=== PATIENT | female | born 1985 | race Caucasian/White ===

== ENCOUNTER 2019-06-21 20:11 | Emergency (ER) | payer OTHER ==
--- NOTE | 2019-06-21 20:55 | PDOC ---
Rapid Medical Evaluation Time Seen by Provider: 06/21/19 20:51 Medical Evaluation: 06/21/19 20:53 This patient had brief evaluation by me cc: vaginal bleeding HPI: Patient is , 5 weeks with vaginal bleeding and pain to right lower abdomen denies dizziness or nausea PE: NAD unlabored breathing mild tenderness in right lower abdomen orders: labs ordered This patient will proceed to the emergency room for further evaluation,. Discharge Disposition - Diagnosis Vaginal bleeding - Referrals - Patient Instructions - Post Discharge Activity
[2019-06-21 21:02] VITALS: TEMP 98.1; BMI 30.4
[2019-06-21 22:11] LABS: BASO % 0.5 % (0-2.0); EOS % 2.8 % (0-4.5); HEMATOCRIT 38.9 % (32.4-45.2); HEMOGLOBIN 13.1 GM/dL (10.7-15.3); LYMPH % 29.7 % (8-40); MCH 29.6 pg (25.7-33.7); MCHC 33.7 g/dl (32.0-36.0); MEAN CELL VOLUME 87.7 fl (80-96); MEAN PLT VOLUME 9.9 fl (7.5-11.1); PLATELET COUNT 206 K/MM3 (134-434); RBC 4.43 M/mm3 (3.60-5.2); RDW 13.9 % (11.6-15.6); WHITE BLOOD COUNT 7.1 K/mm3 (4.0-10.0)
[2019-06-21 22:20] LABS: EPI CELLS 1.5 /HPF (0-5/HPF); HYALINE CASTS 2 /lpf (0-8); PH,URINE 5.5 (5.0-8.0); URINE APPEARANCE CLEAR; URINE BACTERIA 25.6 /hpf (NEGATIVE); URINE BILIRUBIN NEGATIVE (NEGATIVE); URINE COLOR YELLOW; URINE GLUCOSE (UA) NEGATIVE (NEGATIVE); URINE KETONE NEGATIVE (NEGATIVE); URINE LEUK ESTERASE NEGATIVE (NEGATIVE); URINE NITRITE NEGATIVE (NEGATIVE); URINE PROTEIN NEGATIVE (NEGATIVE); URINE RBC 39 /hpf (0-4); URINE WBC 1 /hpf (0-5)
[2019-06-21 22:57] LABS: ALBUMIN 3.4 g/dl (3.4-5.0); BILIRUBIN,TOTAL 0.2 mg/dL (0.2-1); BLOOD UREA NITROGEN 11.9 mg/dL (7-18); CALCIUM 8.2 mg/dL (8.5-10.1); CREATININE 0.5 mg/dL (0.55-1.3); POTASSIUM 3.6 mmol/L (3.5-5.1); TOT PROT 7.5 g/dl (6.4-8.2)
--- NOTE | 2019-06-21 23:22 | PDOC ---
Documentation entered by Petr Ayala SCRIBE, acting as scribe for Florina Martínez MD. Florina Martínez MD: This documentation has been prepared by the Jamie putnam Xhesika, SCRIBE, under my direction and personally reviewed by me in its entirety. I confirm that the documentation accurately reflects all work, treatment, procedures, and medical decision making performed by me. History of Present Illness - General Chief Complaint: Vaginal Bleeding Stated Complaint: FIVE WK PA/VAGINAL BLEEDING Time Seen by Provider: 06/21/19 20:51 History Source: Patient Exam Limitations: No Limitations - History of Present Illness Initial Comments: 06/21/19 22:46 The patient is a 33 year old female, A2, currently 5 weeks with no significant PMH of who presents to the emergency department for vaginal bleeding yesterday. Pt states she was having intercourse with her partner when she noticed blood. Pt denies any active bleeding today. Pt states she was seen at [facility] for an interview and her next appointment is Jul 12. Pt states her LMP was 05/05/2019. The patient denies chest pain, shortness of breath, headache and dizziness. Denies fever, chills, cough, nausea, vomiting, diarrhea and constipation. Denies dysuria, frequency, urgency and hematuria. Allergies: NKDA Past surgical history: 2-s-throkwbs Past History - Past Medical History Allergies/Adverse Reactions: Allergies Allergy/AdvReac Type Severity Reaction Status Date / Time No Known Allergies Allergy Verified 06/21/19 20:59 COPD: No Other medical history: 2 ectopic pregnancies - Psycho Social/Smoking Cessation Hx Smoking History: Never smoked Have you smoked in the past 12 months: No Information on smoking cessation initiated: No Hx Alcohol Use: No Drug/Substance Use Hx: No Review of Systems - Review of Systems Able to Perform ROS?: Yes Comments:: 06/21/19 22:46 GENERAL/CONSTITUTIONAL: No fever or chills. No weakness. HEAD, EYES, EARS, NOSE AND THROAT: No change in vision. No ear pain or discharge. No sore throat. CARDIOVASCULAR: No chest pain or shortness of breath. RESPIRATORY: No cough, wheezing, or hemoptysis. GASTROINTESTINAL: No nausea, vomiting, diarrhea or constipation. +vaginal bleeding. GENITOURINARY: No dysuria, frequency, or change in urination. MUSCULOSKELETAL: No joint or muscle swelling or pain. No neck or back pain. SKIN: No rash NEUROLOGIC: No headache, vertigo, loss of consciousness, or change in strength/ sensation. ENDOCRINE: No increased thirst. No abnormal weight change. HEMATOLOGIC/LYMPHATIC: No anemia, easy bleeding, or history of blood clots. ALLERGIC/IMMUNOLOGIC: No hives or skin allergy. *Physical Exam - Vital Signs Last Vital Signs Temp Pulse Resp BP Pulse Ox 98.1 F 79 20 127/74 100 06/21/19 20:59 06/21/19 20:59 06/21/19 20:59 06/21/19 20:59 06/21/19 20:59 - Physical Exam 06/21/19 22:46 GENERAL: Awake, alert, and fully oriented, in no acute distress HEAD: No signs of trauma EYES: PERRLA, EOMI, sclera anicteric, conjunctiva clear ENT: Auricles normal inspection, hearing grossly normal, nares patent, oropharynx clear without exudates. Moist mucosa NECK: Normal ROM, supple, no lymphadenopathy, JVD, or masses LUNGS: Breath sounds equal, clear to auscultation bilaterally. No wheezes, and no crackles HEART: Regular rate and rhythm, normal S1 and S2, no murmurs, rubs or gallops ABDOMEN: Soft, nontender, normoactive bowel sounds. No guarding, no rebound. No masses : +scant bleeding with intercourse EXTREMITIES: Normal range of motion, no edema. No clubbing or cyanosis. No cords, erythema, or tenderness NEUROLOGICAL: Cranial nerves II through XII grossly intact. Normal speech, normal gait SKIN: Warm, Dry, normal turgor, no rashes or lesions noted. ED Treatment Course - LABORATORY CBC & Chemistry Diagram: 06/21/19 21:40 06/21/19 21:40 - ADDITIONAL ORDERS Additional order review: Laboratory Results 06/21/19 21:40 Urine Color Yellow Urine Appearance Clear Urine pH 5.5 Ur Specific [place] 1.028 Urine Protein Negative Urine Glucose (UA) Negative Urine Ketones Negative Urine Blood 3+ H Urine Nitrite Negative Urine Bilirubin Negative Urine Urobilinogen 1.0 Ur Leukocyte Esterase Negative Urine WBC (Auto) 1 Urine RBC (Auto) 39 Urine Casts (Auto) 2 U Epithel Cells (Auto) 1.5 Urine Bacteria (Auto) 25.6 06/21/19 21:40 RBC 4.43 MCV 87.7 MCHC 33.7 RDW 13.9 MPV 9.9 Neutrophils % 56.0 Lymphocytes % 29.7 Monocytes % 11.0 H Eosinophils % 2.8 Basophils % 0.5 - RADIOLOGY Radiology Studies Ordered: Category Date Time Status TRANSVAGINAL US PREG [US] Stat Ultrasound 06/21/19 22:32 Ordered Medical Decision Making - Medical Decision Making 06/21/19 23:19 33-year-old female who states she is 5 weeks her last LMP was in May Past medical history 6 para 3 a 2 Differential includes early , ectopic , threatened AB Plan type and screen, beta hCG and transvaginal ultrasound 06/22/19 00:35 Vaginal ultrasound shows a single live intrauterine of 7 weeks and 1 day, heart tones are 143 bpm, no right ovarian torsion color flow with appropriate anterior and venous waveforms, left ovary not seen Patient will keep her [facility] appointment on July 12 and return if there are any significant problems such as cramping with passage of large clots Discharge - Discharge Information Problems reviewed: Yes Clinical Impression/Diagnosis: Vaginal bleeding Condition: Stable Disposition: HOME - Admission No - Follow up/Referral Referrals: Char Salazar MD [Primary Care Provider] - - Patient Discharge Instructions Patient Printed Discharge Instructions: DI for -- Discomforts and Remedies Additional Instructions: please keep your appointment with the solutions specialist in July you may take vitamins that you buy in the store - Post Discharge Activity
[2019-06-22 01:08] VITALS: BP 108/78; PULSE 78
== END 2019-06-22 01:06 | disposition home or self-care (01) ==
LOC: JER 20:11
DX: O26.891 Other specified pregnancy related conditions, first trimester (principal); Z3A.01 Less than 8 weeks gestation of pregnancy; N93.9 Abnormal uterine and vaginal bleeding, unspecified
CPT/HCPCS: 36415; 76817-TC; 80053; 81003; 84702; 84703; 85025; 87086; 99283-25

== ENCOUNTER 2019-06-29 03:24 | Emergency (ER) | payer OTHER ==
[2019-06-29 04:14] VITALS: TEMP 97.9; BMI 30.2
--- NOTE | 2019-06-29 04:41 | PDOC ---
Attending Attestation - Resident Resident Name: Darion Patiño - ED Attending Attestation I have performed the following: I have examined & evaluated the patient, The case was reviewed & discussed with the resident, I agree w/resident's findings & plan - HPI HPI: 06/29/19 21:00 see resident hpi - Physicial Exam PE: 06/29/19 21:00 see resident exam - Medical Decision Making 06/29/19 21:00 33-year-old female with vaginal bleeding and cramping status post methotrexate Patient signed out to dayshift pending ultrasound to rule out retained products
[2019-06-29 05:13] LABS: HEMATOCRIT 35.7 % (32.4-45.2); HEMOGLOBIN 12.3 GM/dL (10.7-15.3); MCH 30.1 pg (25.7-33.7); MCHC 34.4 g/dl (32.0-36.0); MEAN CELL VOLUME 87.5 fl (80-96); MEAN PLT VOLUME 9.6 fl (7.5-11.1); PLATELET COUNT 226 K/MM3 (134-434); RBC 4.08 M/mm3 (3.60-5.2); RDW 13.6 % (11.6-15.6); WHITE BLOOD COUNT 10.5 K/mm3 (4.0-10.0)
[2019-06-29 05:20] LABS: EPI CELLS 26.5 /HPF (0-5/HPF); HYALINE CASTS 105 /lpf (0-8); URINE APPEARANCE TURBID; URINE BACTERIA 0.3 /hpf (NEGATIVE); URINE BILIRUBIN 1+ (NEGATIVE); URINE COLOR RED; URINE GLUCOSE (UA) 1+ (NEGATIVE); URINE KETONE TRACE (NEGATIVE); URINE LEUK ESTERASE 1+ (NEGATIVE); URINE NITRITE NEGATIVE (NEGATIVE); URINE PROTEIN 3+ (NEGATIVE); URINE RBC 4247 /hpf (0-4); URINE UROBILINOGEN 0.2 mg/dL (0.2-1.0); URINE WBC 7 /hpf (0-5)
[2019-06-29 05:29] LABS: INR 0.99 (0.83-1.09); PROTHROMBIN TIME (PATIENT) 11.7 SEC (9.7-13.0)
[2019-06-29 05:41] LABS: ALBUMIN 3.2 g/dl (3.4-5.0); BILIRUBIN,TOTAL 0.3 mg/dL (0.2-1); BLOOD UREA NITROGEN 12.3 mg/dL (7-18); CREATININE 0.8 mg/dL (0.55-1.3); POTASSIUM 4.6 mmol/L (3.5-5.1); TOT PROT 6.9 g/dl (6.4-8.2)
--- NOTE | 2019-06-29 06:03 | PDOC ---
History of Present Illness - General Chief Complaint: Vaginal Bleeding Stated Complaint: VOMITING & VAGINAL BLEEDING Time Seen by Provider: 06/29/19 04:40 History Source: Patient Exam Limitations: No Limitations - History of Present Illness Initial Comments: 06/29/19 08:08 33 yo F with no past medical history presents to the emergency department s/p methotrexate administration at [facility] 1 day ago presents to the emergency department with abdominal cramping and bleeding. Per the patient, she was approximately 7 weeks 1 day GA based on US which confirmed that IUP. At approximately 6:30 pm last night, she states she began having abdominal cramping. Throughout the night, she noted blood in the bed and became concerned she was losing too much blood. Endorses abdominal cramping in the suprapubic region. Denies the following: fevers, chills, lightheadedness, chest pain, SOB, nausea, vomiting, dysuria, hematuria, diarrhea, and leg pain/swelling. Allergies: NKDA Past History - Past Medical History Allergies/Adverse Reactions: Allergies Allergy/AdvReac Type Severity Reaction Status Date / Time No Known Allergies Allergy Verified 06/29/19 04:14 Home Medications: Ambulatory Orders Unobtainable 06/29/19 COPD: No - Reproductive History (#): 7 Para: 3 Ectopic : Yes (2) - Psycho Social/Smoking Cessation Hx Smoking History: Never smoked Have you smoked in the past 12 months: No Hx Alcohol Use: No Drug/Substance Use Hx: No Review of Systems - Review of Systems Able to Perform ROS?: Yes Is the patient limited Dutch proficient: No Constitutional: No: Chills, Diaphoresis, Fever, Weakness HEENTM: No: Eye Pain, Ear Pain, Nose Pain, Throat Pain, Mouth Pain Respiratory: No: Cough, Shortness of Breath, Hemoptysis Cardiac (ROS): No: Chest Pain, Lightheadedness, Palpitations, Syncope, Chest Tightness ABD/GI: Yes: Abdominal cramping. No: Constipated, Diarrhea, Nausea, Poor Appetite, Poor Fluid Intake, Rectal Bleeding, Vomiting, Tarry Stools : No: Burning, Dysuria, Hematuria Musculoskeletal: No: Back Pain, Joint Pain, Neck Pain Integumentary: No: Bruising, Erythema, Rash Neurological: No: Headache, Numbness Endocrine: No: Unexplained Weight Loss Hematologic/Lymphatic: No: Anemia *Physical Exam - Vital Signs Last Vital Signs Temp Pulse Resp BP Pulse Ox 97.9 F 82 18 108/66 100 06/29/19 03:30 06/29/19 03:30 06/29/19 03:30 06/29/19 03:30 06/29/19 03:30 - Physical Exam General Appearance: Yes: Nourished, Appropriately Dressed. No: Apparent Distress, Intoxicated HEENT: positive: EOMI, ROBBIE, Normal Voice, Symmetrical, Pharynx Normal, Hearing Grossly Normal. negative: Pale Conjunctivae, Scleral Icterus (R), Scleral Icterus (L), Muffled/Hoarse voice, Pharyngeal Erythema, Tonsillar Exudate, Tonsillar Erythema, Excessive drooling Neck: positive: Trachea midline, Supple. negative: Tender, Lymphadenopathy (R) , Lymphadenopathy (L), Tender lateral, Tender midline Respiratory/Chest: positive: Lungs Clear, Normal Breath Sounds. negative: Chest Tender, Respiratory Distress, Accessory Muscle Use, Crackles, Rales, Rhonchi, Stridor, Wheezing Cardiovascular: positive: Regular Rhythm, Regular Rate, S1, S2. negative: Systolic Murmur Female Pelvic Exam: positive: normal external exam, cervical os closed, normal adnexa, vaginal bleeding, other (blood clots located in the vaginal vault with scant pieces of suspected products of conception at the os. digital pelvic exam reveals closed os. ). negative: CMT, adnexal tenderness Gastrointestinal/Abdominal: positive: Normal Bowel Sounds, Flat, Soft. negative : Tender, Distended, Guarding Lymphatic: negative: Adenopathy Musculoskeletal: positive: Normal Inspection. negative: CVA Tenderness, Vertebral Tenderness Extremity: positive: Normal Capillary Refill, Normal Inspection, Normal Range of Motion. negative: Tender, Swelling, Calf Tenderness, Erythema Integumentary: positive: Normal Color, Dry, Warm Neurologic: positive: Fully Oriented, Alert, Normal Mood/Affect ED Treatment Course - LABORATORY CBC & Chemistry Diagram: 06/29/19 05:00 06/29/19 05:00 - ADDITIONAL ORDERS Additional order review: Laboratory Results 06/29/19 06/29/19 06/29/19 05:05 05:00 05:00 PT with INR 11.70 INR 0.99 Sodium 138 Potassium 4.6 Chloride 107 Carbon Dioxide 25 Anion Gap 6 L BUN 12.3 Creatinine 0.8 Est GFR (CKD-EPI)AfAm 113.06 Est GFR (CKD-EPI)NonAf 97.55 Random Glucose 120 H Calcium 9.0 Total Bilirubin 0.3 AST 16 ALT 27 Alkaline Phosphatase 71 Total Protein 6.9 Albumin 3.2 L Urine Color Red Urine Appearance Turbid Urine pH 6.0 Ur Specific [place] 1.028 Urine Protein 3+ H Urine Glucose (UA) 1+ H Urine Ketones Trace H Urine Blood 3+ H Urine Nitrite Negative Urine Bilirubin 1+ H Urine Urobilinogen 0.2 Ur Leukocyte Esterase 1+ H Urine WBC (Auto) 7 Urine RBC (Auto) 4247 Urine Casts (Auto) 105 U Epithel Cells (Auto) 26.5 Urine Bacteria (Auto) 0.3 06/29/19 05:00 RBC 4.08 MCV 87.5 MCHC 34.4 RDW 13.6 MPV 9.6 Medical Decision Making - Medical Decision Making 33 yo F with no past medical history presents to the emergency department s/p methotrexate administration at [facility] 1 day ago presents to the emergency department with abdominal cramping and bleeding. Initial vitals: Initial Vital Signs Temp Pulse Resp BP Pulse Ox 97.9 F 82 18 108/66 100 06/29/19 03:30 06/29/19 03:30 06/29/19 03:30 06/29/19 03:30 06/29/19 03:30 Work up: suspect patient is in the midst of an considering she took methotrexate within the past 24 hours. will evaluate for anemia and obtain blood type. will order for transvaginal US to ascertain if there are retained products of conception Laboratory Tests 06/29/19 06/29/19 06/29/19 05:00 05:00 05:00 WBC 10.5 H RBC 4.08 Hgb 12.3 Hct 35.7 MCV 87.5 MCH 30.1 MCHC 34.4 RDW 13.6 Plt Count 226 MPV 9.6 PT with INR 11.70 INR 0.99 Sodium 138 Potassium 4.6 Chloride 107 Carbon Dioxide 25 Anion Gap 6 L BUN 12.3 Creatinine 0.8 Est GFR (CKD-EPI)AfAm 113.06 Est GFR (CKD-EPI)NonAf 97.55 Random Glucose 120 H Calcium 9.0 Total Bilirubin 0.3 AST 16 ALT 27 Alkaline Phosphatase 71 Total Protein 6.9 Albumin 3.2 L Urine Color Urine Appearance Urine pH Ur Specific [place] Urine Protein Urine Glucose (UA) Urine Ketones Urine Blood Urine Nitrite Urine Bilirubin Urine Urobilinogen Ur Leukocyte Esterase Urine WBC (Auto) Urine RBC (Auto) Urine Casts (Auto) U Pathogenic Cast Auto U Epithel Cells (Auto) U Sm Round Cell (Auto) Urine Bacteria (Auto) Blood Type Antibody Screen 06/29/19 06/29/19 05:00 05:05 WBC RBC Hgb Hct MCV MCH MCHC RDW Plt Count MPV PT with INR INR Sodium Potassium Chloride Carbon Dioxide Anion Gap BUN Creatinine Est GFR (CKD-EPI)AfAm Est GFR (CKD-EPI)NonAf Random Glucose Calcium Total Bilirubin AST ALT Alkaline Phosphatase Total Protein Albumin Urine Color Red Urine Appearance Turbid Urine pH 6.0 Ur Specific [place] 1.028 Urine Protein 3+ H Urine Glucose (UA) 1+ H Urine Ketones Trace H Urine Blood 3+ H Urine Nitrite Negative Urine Bilirubin 1+ H Urine Urobilinogen 0.2 Ur Leukocyte Esterase 1+ H Urine WBC (Auto) 7 Urine RBC (Auto) 4247 Urine Casts (Auto) 105 U Pathogenic Cast Auto None seen U Epithel Cells (Auto) 26.5 U Sm Round Cell (Auto) None seen Urine Bacteria (Auto) 0.3 Blood Type O POSITIVE Antibody Screen Negative patient is O+ and no UTI noted. patient is awaiting for TVUS. patient to be signed out to day team. Discharge - Discharge Information Problems reviewed: Yes Clinical Impression/Diagnosis: Miscarriage - Follow up/Referral Referrals: Mal Kevin MD [Staff Physician] - - Patient Discharge Instructions Patient Printed Discharge Instructions: DI for Miscarriage Print Language: ICELANDIC - Post Discharge Activity
--- NOTE | 2019-06-29 09:39 | PDOC ---
*Physical Exam - Vital Signs Last Vital Signs Temp Pulse Resp BP Pulse Ox 97.9 F 82 18 108/66 100 06/29/19 03:30 06/29/19 03:30 06/29/19 03:30 06/29/19 03:30 06/29/19 03:30 - Physical Exam 06/29/19 09:[address] alcazar. Patient is a 33-year-old female who received methotrexate at [facility] 24 hours previously for an IUP with FH confirmed by ultrasound dated 06/21/2019. At that time, IUP was noted to be 7 weeks 1 days old. Transvaginal ultrasound during current admission shows no evidence of IUP, retained products are noted. Os is closed. Patient reports minimal bleeding at this moment. There is no indication for endometritis at this time. Patient has scheduled follow[facility]up at [facility]. Patient is hemodynamically stable at this time. Will discharge with miscarriage precautions. Patient is Rh+. ED Treatment Course - LABORATORY CBC & Chemistry Diagram: 06/29/19 05:00 06/29/19 05:00 - ADDITIONAL ORDERS Additional order review: Laboratory Results 06/29/19 06/29/19 06/29/19 05:05 05:00 05:00 PT with INR 11.70 INR 0.99 Sodium Potassium Chloride Carbon Dioxide Anion Gap BUN Creatinine Est GFR (CKD-EPI)AfAm Est GFR (CKD-EPI)NonAf Random Glucose Calcium Total Bilirubin AST ALT Alkaline Phosphatase Total Protein Albumin Urine Color Red Urine Appearance Turbid Urine pH 6.0 Ur Specific [place] 1.028 Urine Protein 3+ H Urine Glucose (UA) 1+ H Urine Ketones Trace H Urine Blood 3+ H Urine Nitrite Negative Urine Bilirubin 1+ H Urine Urobilinogen 0.2 Ur Leukocyte Esterase 1+ H Urine WBC (Auto) 7 Urine RBC (Auto) 4247 Urine Casts (Auto) 105 U Pathogenic Cast Auto None seen U Epithel Cells (Auto) 26.5 U Sm Round Cell (Auto) None seen Urine Bacteria (Auto) 0.3 Blood Type O POSITIVE Antibody Screen Negative 06/29/19 05:00 PT with INR INR Sodium 138 Potassium 4.6 Chloride 107 Carbon Dioxide 25 Anion Gap 6 L BUN 12.3 Creatinine 0.8 Est GFR (CKD-EPI)AfAm 113.06 Est GFR (CKD-EPI)NonAf 97.55 Random Glucose 120 H Calcium 9.0 Total Bilirubin 0.3 AST 16 ALT 27 Alkaline Phosphatase 71 Total Protein 6.9 Albumin 3.2 L Urine Color Urine Appearance Urine pH Ur Specific [place] Urine Protein Urine Glucose (UA) Urine Ketones Urine Blood Urine Nitrite Urine Bilirubin Urine Urobilinogen Ur Leukocyte Esterase Urine WBC (Auto) Urine RBC (Auto) Urine Casts (Auto) U Pathogenic Cast Auto U Epithel Cells (Auto) U Sm Round Cell (Auto) Urine Bacteria (Auto) Blood Type Antibody Screen 06/29/19 05:00 RBC 4.08 MCV 87.5 MCHC 34.4 RDW 13.6 MPV 9.6 Discharge - Discharge Information Problems reviewed: Yes Clinical Impression/Diagnosis: Miscarriage Condition: Stable Disposition: HOME - Follow up/Referral Referrals: Mal Kevin MD [Staff Physician] - - Patient Discharge Instructions Patient Printed Discharge Instructions: DI for Miscarriage Print Language: TANZANIAN - Post Discharge Activity
[2019-06-29 10:26] VITALS: BP 110/74; PULSE 79
--- NOTE | 2019-06-29 11:00 | EKG ---
Test Reason : Blood Pressure : / mmHG Vent. Rate : 063 BPM Atrial Rate : 063 BPM P-R Int : 162 ms QRS Dur : 076 ms QT Int : 400 ms P-R-T Axes : 045 057 035 degrees QTc Int : 409 ms NORMAL SINUS RHYTHM NORMAL ECG NO PREVIOUS ECGS AVAILABLE Confirmed by Axel Hartmann MD ([id number]) on 06/29/2019 11:00:16 AM Referred By: Confirmed By:Axel Hartmann MD
== END 2019-06-29 09:40 | disposition home or self-care (01) ==
LOC: JER 03:24
DX: O03.9 Complete or unspecified spontaneous abortion without complication (principal)
CPT/HCPCS: 36415; 76817-TC; 80053; 81003; 85027; 85610; 86850; 86900; 86901; 87086; 87186; 93005; 93010; 99283-25

== ENCOUNTER 2023-05-21 06:10 | Inpatient (IN) | payer OTHER ==
[2023-05-21] MEDS: ELECTROLYTE-148 SOLN 500 ML IV ONE (06:30)
[2023-05-21 06:55] VITALS: BMI 35.7
[2023-05-21] MEDS: ELECTROLYTE-148 SOLN 1,000 ML IV SCH (07:00)
[2023-05-21] MEDS: CITRIC ACID/SODIUM CITRATE 30 ML UNIT-DOSE CUP PO ONE (07:30)
[2023-05-21] MEDS ORDERED: IBUPROFEN 600 MG TABLET (FP) PO PRN (07:41)
[2023-05-21] MEDS ORDERED: ONDANSETRON 4 MG/2 ML VIAL IVPUSH PRN (07:41)
[2023-05-21] MEDS ORDERED: ACETAMINOPHEN 325 MG TABLET (FP) PO PRN (07:41)
[2023-05-21] MEDS ORDERED: ceFAZolin SODIUM 1 GM VIAL ONE (07:51)
[2023-05-21] MEDS ORDERED: SODIUM CHLORIDE 0.9% P/F 10 ML VIAL IJ ONE (07:51)
[2023-05-21] MEDS ORDERED: PHENYLEPHRINE HCL 10 MG/1 ML SINGLE DOSE VIAL ONE (08:08)
[2023-05-21] MEDS ORDERED: OXYTOCIN 10 UNITS/ML VIAL ONE (08:46)
[2023-05-21] MEDS ORDERED: ONDANSETRON 4 MG/2 ML VIAL ONE (08:47)
[2023-05-21] MEDS ORDERED: LIGASURE IMPACT TP ONE (08:58)
[2023-05-21] MEDS ORDERED: MIDAZOLAM HCL 2 MG/2 ML SINGLE DOSE VIAL ONE (09:08)
[2023-05-21] MEDS ORDERED: METOCLOPRAMIDE HCL INJECTION 10 MG/2 ML VIAL ONE (09:16)
[2023-05-21] MEDS ORDERED: FENTANYL CITRATE/PF 50 MCG/ML VIAL ONE (09:16)
[2023-05-21] MEDS ORDERED: ONDANSETRON 4 MG/2 ML VIAL IVPB PRN (10:03)
[2023-05-21] MEDS: morphine SULFATE/PF 1 MG/2 ML (2cc Syringe - QUVA) EP ONE (12:03)
[2023-05-21] MEDS: ACETAMINOPHEN 325 MG TABLET (FP) PO SCH (12:04)
[2023-05-21] MEDS: CEFAZOLIN SODIUM 2 GM in DEXTROSE 5%-WATER 100 ML IVPB SCH (17:21)
[2023-05-21] MEDS: SIMETHICONE 80 MG TAB.CHEW (FP) PO PRN (21:40)
[2023-05-21] MEDS: SENNOSIDES/DOCUSATE COMBO (SENNA PLUS) TABLET (UD) PO SCH (21:40)
[2023-05-22] MEDS: OXYTOCIN 20 UNITS in 0.9% NS 20 UNIT/1,000 ML INFUS.BAG IV SCH (03:30)
[2023-05-22 08:41] LABS: BASO % 0.3 % (0-2.0); EOS % 0.9 % (0-4.5); HEMATOCRIT 32.8 % (32.4-45.2); HEMOGLOBIN 11.3 GM/dL (10.7-15.3); LYMPH % 19.3 % (8-40); MCH 30.7 pg (25.7-33.7); MCHC 34.4 g/dl (32.0-36.0); MEAN CELL VOLUME 89.4 fl (80-96); MEAN PLT VOLUME 8.9 fl (7.5-11.1); MONO % 5.8 % (3.8-10.2); NEUT % 73.7 % (42.8-82.8); PLATELET COUNT 200 10^3/uL (134-434); RBC 3.66 M/mm3 (3.60-5.2); RDW 14.9 % (11.6-15.6); WHITE BLOOD COUNT 8.2 K/mm3 (4.0-10.0)
[2023-05-22] MEDS: IBUPROFEN 600 MG TABLET (FP) PO PRN (09:47)
[2023-05-22] MEDS ORDERED: DIPHTH,PERTUSS(ACELL),TET 0.5 ML DISP.SYRIN IM ONE ×2 (11:00→17:45)
[2023-05-22] MEDS ORDERED: FLU VACCINE (FLULAVAL) PF 60 MCG/0.5 ML SYRINGE 2023-2024 IM ONE ×2 (11:00→17:45)
[2023-05-22] MEDS: FLU VACCINE (FLULAVAL) PF 60 MCG/0.5 ML SYRINGE 2023-2024 IM ONE (21:08)
[2023-05-22] MEDS: DIPHTH,PERTUSS(ACELL),TET 0.5 ML DISP.SYRIN IM ONE (21:14)
[2023-05-22] MEDS: BISACODYL 10 MG SUPP.RECT RC PRN (21:33)
[2023-05-23] MEDS: oxyCODONE HCL 5 MG TABLET PO PRN (21:10)
[2023-05-24 08:45] VITALS: RESP 16
[2023-05-24 08:47] VITALS: BP 132/72; PULSE 68; TEMP 98.2
== END 2023-05-24 15:18 | disposition home or self-care (01) | DRG 540 ==
LOC: JLDR 06:10 → J3W 12:35
PROVIDERS: ADMIT Specialist; ATTEND Specialist
PROC: 10D00Z1 Extraction of Products of Conception, Low, Open Approach (ICD-10-PCS; principal; 2023-05-21)
PROC: 0UT70ZZ Resection of Bilateral Fallopian Tubes, Open Approach (ICD-10-PCS; 2023-05-21)
DX: O34.219 Maternal care for unspecified type scar from previous cesarean delivery (principal); N73.6 Female pelvic peritoneal adhesions (postinfective); Z30.2 Encounter for sterilization; Z3A.37 37 weeks gestation of pregnancy; Z37.0 Single live birth
CPT/HCPCS: 36415; 80053; 85025; 85610; 85730; 86780; 86850; 86900; 86901; 88305-TC; 88307-TC; 90686; 90715; G0008